=== PATIENT | female | born 1980 | race Caucasian/White ===

== ENCOUNTER 2019-04-18 07:07 | Emergency (ER) | payer OTHER ==
[2019-04-18 07:29] VITALS: BP 150/97; PULSE 109; TEMP 99.6; BMI 29.0
[2019-04-18] MEDS ORDERED: FAMOTIDINE 20 MG/50 ML IVPB 20 MG/50 ML MG IVPB ONE ×2 (07:57→09:07)
[2019-04-18] MEDS ORDERED: SODIUM CHLORIDE 1,000 ML IV STA (07:57)
[2019-04-18] MEDS ORDERED: ACETAMINOPHEN 1000 MG/100 ML VIAL (NON FORMULARY) IVPB ONE (07:57)
[2019-04-18] MEDS ORDERED: ONDANSETRON 4 MG/2 ML VIAL IVPUSH ONE (07:58)
[2019-04-18] MEDS ORDERED: MAG HYDROX/AL HYDROX/SIMETH -MYLANTA- ORAL SUSPENSION PO ONE (07:58)
--- NOTE | 2019-04-18 08:17 | PDOC ---
History of Present Illness - General Chief Complaint: Pain Stated Complaint: ABD PAIN/VOMITING Time Seen by Provider: 04/18/19 07:50 History Source: Patient Exam Limitations: No Limitations - History of Present Illness Initial Comments: Sima Larkin is a 38 yo F w a pmh of HTN and PUD (Tested + by Dr. Harper 2 months ago), presents to the [facility] er with her female partner because she has been experiencing significant epigastric TTP for the past 2 days. Patient states the pain is 9/10, feels like a burning sensation, and does not radiate. Patient states she has had on and off epigastric pain for over a month but yesterday at 9 pm her pain became intolerable and it would not go away. She started feeling warm, getting the chills, becoming nauseous and vomited multiple times since last night. She states she cannot keep anything down and every time she eats she vomits the food she eats. Patient states she recently started seeing Dr. Gardner in January and had this epigastric pain evaluated. She was diagnosed with H-Pylori and given 2 weeks of triple therapy Abx treatment. She says now the pain is back but it is much worse than ever before. She also had an abdominal US in January which was non-diagnostic. Patient had a normal bowel movement yesterday without diarrhea or constipation. No personal hx of kidney stones. Denies chest pain, SOB, back pain, dysuria, frequency, urgency. Denies any diarrhea or constipation. LMP: 2 weeks prior PCP: Dr. Gardner PSH: trisha mosre, tubes tied Social Hx: Denies smoking, drinking, or other substance usage Allergies: NKA, NKDA Past History - Past Medical History Allergies/Adverse Reactions: Allergies Allergy/AdvReac Type Severity Reaction Status Date / Time No Known Allergies Allergy Unverified 04/18/19 07:22 - Suicide/Smoking/Psychosocial Hx Smoking History: Never smoked Hx Alcohol Use: No Drug/Substance Use Hx: No Review of Systems - Review of Systems Able to Perform ROS?: Yes Comments:: CONSTITUTIONAL: Present: Chills, generalized weakness, malaise, loss of appetite Absent: fever, diaphoresis HEENT: Absent: rhinorrhea, nasal congestion, throat pain, throat swelling, difficulty swallowing, mouth swelling, ear pain, eye pain, visual Changes CARDIOVASCULAR: Absent: chest pain, syncope, palpitations, irregular heart rate, lightheadedness , peripheral edema RESPIRATORY: Absent: cough, shortness of breath, dyspnea with exertion, orthopnea, wheezing, stridor, hemoptysis GASTROINTESTINAL: Present: abdominal pain, abdominal distension, nausea, vomiting Absent: diarrhea, constipation, melena, hematochezia GENITOURINARY: Absent: dysuria, frequency, urgency, hesitancy, hematuria, flank pain, genital pain MUSCULOSKELETAL: Present: Myalgia Absent: arthralgia, joint swelling SKIN: Absent: rash, itching, pallor HEMATOLOGIC/IMMUNOLOGIC: Absent: easy bleeding, easy bruising, lymphadenopathy, frequent infections ENDOCRINE: Absent: unexplained weight gain, unexplained weight loss, heat intolerance, cold intolerance NEUROLOGIC: Absent: headache, focal weakness or paresthesias, dizziness, unsteady gait, seizure, mental status changes, bladder or bowel incontinence PSYCHIATRIC: Absent: anxiety, depression, suicidal or homicidal ideation, hallucinations. *Physical Exam - Vital Signs Last Vital Signs Temp Pulse Resp BP Pulse Ox 99.6 F 109 H 16 150/97 99 04/18/19 07:20 04/18/19 07:20 04/18/19 07:20 04/18/19 07:20 04/18/19 07:20 - Physical Exam Comments: GENERAL: Well developed, well nourished. Awake and alert. Mild distress. HEENT: Normocephalic, atraumatic. PERRLA, EOMI. No conjunctival pallor. Sclera are non- icteric. Moist mucous membranes. Oropharynx is clear. NECK: Supple. Full ROM. No lymphadenopathy. CARDIOVASCULAR: Tachycardic rate, regular rhythm. No murmurs, rubs, or gallops. Distal pulses are 2+ and symmetric. PULMONARY: No evidence of respiratory distress. Lungs clear to auscultation bilaterally. No wheezing, rales or rhonchi. ABDOMINAL: There is significant epigastric TTP. No RUQ pain, - dale sign. Mild leigha- umbilical and suprapubic TTP. No right or left lower quadrant pain. Abdomen is overal soft and non-distended with normal bowel sounds. No rebound or guarding. MUSCULOSKELETAL Normal range of motion at all joints. No bony deformities or tenderness. No CVA tenderness. EXTREMITIES: No cyanosis. No clubbing. No edema. No calf tenderness. SKIN: Warm and dry. Normal capillary refill. No rashes. No jaundice. NEUROLOGICAL: Alert, awake, appropriate. Normal speech. Gait is normal without ataxia. PSYCHIATRIC: Cooperative. Good eye contact. Appropriate mood and affect. ED Treatment Course - LABORATORY CBC & Chemistry Diagram: 04/18/19 09:15 04/18/19 09:15 - RADIOLOGY Radiology Studies Ordered: Category Date Time Status ABDOMEN US -LIMITED [US] Stat Ultrasound 04/18/19 07:58 Ordered Radiograph Interpretation: RUQ US: HISTORY PROVIDED: Rule out gallstones. Real time examination of the abdomen demonstrates the following: The gallbladder is normal in size and does contain multiple calculi. There is no evidence of intra or extrahepatic biliary duct dilatation. There is no sonographic evidence of acute cholecystitis. The liver is normal in size and texture with no intrahepatic masses seen. Hepatopedal flow is documented within the main portal vein. The pancreas is normal in size and texture with no pancreatic masses identified. The tail of the pancreas was not well visualized due to overlying bowel gas. There is no evidence of hydronephrosis or acute abnormalities of the right kidney. There is no evidence of AAA. The IVC is patent. IMPRESSION: Cholelithiasis. Medical Decision Making - Medical Decision Making Sima Larkin is a 38 yo obese F w a pmh of HTN and PUD (Tested + by Dr. Harper 2 months ago), presents to the [facility] er with her female partner because she has been experiencing significant epigastric TTP for the past 2 days. Patient states the pain is 9/10, feels like a burning sensation, and does not radiate. Patient states she has had on and off epigastric pain for over a month but yesterday at 9 pm her pain became intolerable and it would not go away. She started feeling warm, getting the chills, becoming nauseous and vomited multiple times since last night. She states she cannot keep anything down and every time she eats she vomits the food she eats. Patient states she recently started seeing Dr. Gardner in January and had this epigastric pain evaluated. She was diagnosed with H-Pylori and given 2 weeks of triple therapy Abx treatment. She says now the pain is back but it is much worse than ever before. She also had an abdominal US in January which was non-diagnostic. Patient had a normal bowel movement yesterday without diarrhea or constipation. No personal hx of kidney stones. Vital Signs Temp Pulse Resp BP Pulse Ox 99.6 F 109 H 16 150/97 99 04/18/19 07:20 04/18/19 07:20 04/18/19 07:20 04/18/19 07:20 04/18/19 07:20 DDx IBNLT: pancreatitis, gastritis, GERD, PUD, biliary colic, cholecystitis, gastroenteritis, renal colic, UTI, pylonephritis, - iup vs ectopic, electrolyte/metabolic disturbance, dehydration Plan: Labs, urine, hcg, EKG, RUQ us, IV hydration, analgesia, anti-emetics, re- assess. EKG: NS rate of 90, narrow complexes, normal axis, no hypertrophy, TWI in lead III, no ST elevations or depressions, no Q waves, NH 156, QTc 435 Labs: Unremarkable Urine: Normal RUQ US: Cholelithiasis Re-assessment: Patient feels much better after analgesic medications. Disposition: Home with PCP fu *DC/Admit/Observation/Transfer Diagnosis at time of Disposition: Cholelithiasis Qualifiers: Cholelithiasis location: gallbladder Cholecystitis presence: without cholecystitis Biliary obstruction: without biliary obstruction Qualified Code(s) : K80.20 - Calculus of gallbladder without cholecystitis without obstruction - Discharge Dispostion Disposition: HOME Condition at time of disposition: Improved Decision to Admit order: No - Referrals Referrals: Vic Gardner MD [Primary Care Provider] - - Patient Instructions Printed Discharge Instructions: Gallstones (Alternative Therapy), Gallstones Additional Instructions: You came into the ER with abdominal pain. We did an ultrasound which showed multiple gallstones. Please make sure to follow up with your primary care doctor this week to discuss what to do next regarding your gallstones. Come back to the ER if your pain worsens, you get a fever, start vomiting, or have any other new or worsening concerns. Thank you for coming to the [facility] ER. We hope you feel better soon! Print Language: GRENADIAN - Post Discharge Activity
[2019-04-18] MEDS ORDERED: ONDANSETRON 4 MG/2 ML VIAL ONE (08:51)
[2019-04-18] MEDS ORDERED: ACETAMINOPHEN INJECTION 100 ML IVPB ONE (08:51)
[2019-04-18] MEDS ORDERED: MAG HYDROX/AL HYDROX/SIMETH 30 ML UNIT-DOSE CUP ONE (08:51)
--- NOTE | 2019-04-18 09:15 | PDOC ---
Attending Attestation - Resident Resident Name: Jeferson Black - ED Attending Attestation I have performed the following: I have examined & evaluated the patient, The case was reviewed & discussed with the resident, I agree w/resident's findings & plan, Exceptions are as noted - HPI HPI: 04/18/19 09:14 38y F hx of htn, recent treated for h pylori sp triple therapy in march presents with complaint of worsening epigastric pain, worsened yesterday is sever, sharp/burning worse with eating. Endorses 3 episodes of nbnb vomiting since yesterday. Pt notes the pain is similar in nature to previous, but it is a bit worse. Pt has followed up with GI and has an endoscopy scheduled. denies any melena, bpr, dysuria, back pain, fever/chils, cp, sob past surgical hx: abdominoplasty physical exam: gi: epgiastric tenderness to palpation, no rebound/guarding, no cva tenderness card: rrr, no mrg pulm: cta bl general: no distress suspect gastritis, consider gallstones, pancreatitis will give pepcid/maalox, fluids, zofran for sx releif will ck labs, lipase, us
[2019-04-18 09:53] LABS: PH,URINE 6.5 (5.0-8.0); URINE APPEARANCE CLOUDY; URINE BILIRUBIN NEGATIVE (NEGATIVE); URINE COLOR YELLOW; URINE GLUCOSE (UA) NEGATIVE (NEGATIVE); URINE KETONE NEGATIVE (NEGATIVE); URINE LEUK ESTERASE NEGATIVE (NEGATIVE); URINE NITRITE NEGATIVE (NEGATIVE); URINE PROTEIN TRACE (NEGATIVE)
[2019-04-18 10:00] LABS: BASO % 0.2 % (0-2.0); EOS % 0.1 % (0-4.5); HEMATOCRIT 46.4 % (32.4-45.2); HEMOGLOBIN 15.5 GM/dL (10.7-15.3); LYMPH % 2.1 % (8-40); MCHC 33.3 g/dl (32.0-36.0); MEAN CELL VOLUME 89.9 fl (80-96); MEAN PLT VOLUME 8.3 fl (7.5-11.1); MONO % 5.7 % (3.8-10.2); NEUT % 91.9 % (42.8-82.8); PLATELET COUNT 218 K/MM3 (134-434); RBC 5.16 M/mm3 (3.60-5.2); RDW 12.2 % (11.6-15.6); WHITE BLOOD COUNT 9.9 K/mm3 (4.0-10.0)
[2019-04-18 10:17] LABS: BILIRUBIN,TOTAL 0.6 mg/dL (0.2-1); BLOOD UREA NITROGEN 13.8 mg/dL (7-18); CALCIUM 8.6 mg/dL (8.5-10.1); MAGNESIUM 1.9 mg/dL (1.8-2.4); PHOSPHOROUS 2.9 mg/dL (2.5-4.9); POTASSIUM 3.9 mmol/L (3.5-5.1); TOT PROT 7.4 g/dl (6.4-8.2)
[2019-04-18] MEDS ORDERED: METOCLOPRAMIDE HCL INJECTION 10 MG/2 ML VIAL IVPUSH ONE (11:34)
[2019-04-18] MEDS ORDERED: METOCLOPRAMIDE HCL INJECTION 10 MG/2 ML VIAL ONE (12:25)
[2019-04-18 12:48] LABS: ANISOCYTOSIS 0; MACROCYTOSIS 0; PLATELET ESTIMATE NORMAL
--- NOTE | 2019-04-19 11:29 | EKG ---
Test Reason : Blood Pressure : / mmHG Vent. Rate : 090 BPM Atrial Rate : 090 BPM P-R Int : 156 ms QRS Dur : 076 ms QT Int : 356 ms P-R-T Axes : 036 023 012 degrees QTc Int : 435 ms NORMAL SINUS RHYTHM NORMAL ECG NO PREVIOUS ECGS AVAILABLE Confirmed by VIDHI RAMIREZ MD ([id number]) on 04/19/2019 11:29:18 AM Referred By: Confirmed By:VIDHI RAMIREZ MD
== END 2019-04-18 13:05 | disposition home or self-care (01) ==
LOC: JER 07:07
PROC: 3E033GC Introduction of Other Therapeutic Substance into Peripheral Vein, Percutaneous Approach (ICD-10-PCS; principal; 2019-04-18)
PROC: 3E033NZ Introduction of Analgesics, Hypnotics, Sedatives into Peripheral Vein, Percutaneous Approach (ICD-10-PCS; 2019-04-18)
PROC: 3E033GC Introduction of Other Therapeutic Substance into Peripheral Vein, Percutaneous Approach (ICD-10-PCS; 2019-04-18)
PROC: 3E033GC Introduction of Other Therapeutic Substance into Peripheral Vein, Percutaneous Approach (ICD-10-PCS; 2019-04-18)
DX: K80.20 Calculus of gallbladder without cholecystitis without obstruction (principal); Z87.11 Personal history of peptic ulcer disease
CPT/HCPCS: 36415; 76705-TC; 80053; 81003; 83690; 83735; 84100; 84703; 85025; 87086; 93005; 93010; 99283-25; J0131; J7030